=== PATIENT | female | born 1995 | race African-American/Black ===

== ENCOUNTER 2016-12-27 10:24 | Emergency (ER) | payer MEDICAID ==
[~2016-12-27 10:24] MED LIST: IRON
[2016-12-27] MEDS ORDERED: ZYRTEC10 M7 PO (10:44)
[2016-12-27] MEDS ORDERED: PROAIR HFA8.5 GM INH (10:45)
[2016-12-27] MEDS ORDERED: SYMBICORT 80-41 PUFF INH (10:45)
[2016-12-27 11:41] LABS: URINE BILIRUBIN NEGATIVE (NEG); URINE BLOOD SMALL (NEG); URINE COLOR YELLOW; URINE GLUCOSE (UA) NEGATIVE (NEG); URINE KETONE NEGATIVE (NEG); URINE LEUKOCYTE ESTERASE POSITIVE (NEG); URINE NITRITE NEGATIVE (NEG); URINE PROTEIN NEGATIVE (NEG)
[2016-12-27 11:42] LABS: URINE APPEARANCE HAZY
[2016-12-27 11:52] LABS: URINE AMORPHOUS 1+; URINE BACTERIA 1+
[2016-12-27] MEDS ORDERED: MACROBID 100 M100 M1 PO (12:17)
== END 2016-12-27 12:33 ==
LOC: EDMED 10:24
PROVIDERS: Emergency Medicine
DX: N39.0 Urinary tract infection, site not specified (principal)